=== PATIENT | female | born 1965 | race Caucasian/White ===

== ENCOUNTER 2024-10-08 23:23 | Emergency (ER) | payer OTHER, SELFPAY ==
--- OUTSIDE RECORDS SUMMARY | 2024-10-08 23:26 | XMS_ITS | Clinical Summary ---
Author Organization [facility] Address [address] [place] [address] Care Team Providers Care Pantry Chef Name Role Phone Lisseth Prasad MD Primary Care Provide r Allergies No known active allergies Medications INTRAUTERINE DEVICE (PARAGARD INTRAUTERINE COPPER)Indications :Routine gynecological examination 1 Device one time. 1 Device 0 2 Active ibuprofen (ADVIL; MOTRIN) 200 mg tablet Take 1 tablet by mouth 4 times daily if needed. 0 3 Active citalopram (CELEXA) 10 mg tabletIndications: Anxiety Take 1 tablet by mouth every morning. 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 Family History Medical History Relation Name Comments Diabetes Father Diabetes Sister Cancer-breast No Family History Relation Name Status Comments Father Sister Social History Tobacco Use Types Packs/Day Years Used Date Smoking Tobacco: Never Smokeless Tobacco: Never Tobacco Cessation:Counseling Given: Yes Alcohol Use Standard Drinks/Week Comments No 0 (1 standard drink = 0.6 oz pur e alcohol) PHQ-2 Answer Date Recorded PHQ-2 TOTAL SCORE 0 05/06/2020 Social Connections Answer Date Recorded Frequency of Communication with Friends and Fami ly Not on file 07/14/2021 Financial Resource Strain Answer Date R ecorded Difficulty of Paying Living Expenses Not on file 07/14/2021 Difficulty of Paying Living Expenses Not on file 07/14/2021 Comments No Sex and Gender Information Value Date Recorded Sex Assigned at Not on file Legal Sex Female 7:17 AM ELECTRICAL CAD DESIGNER Gender Identity Not on file Sexual Orientation Not on file Obstetrics History Last Filed Vital Signs Vital Sign Reading Time Taken Comments Blood Pressure 114/71 05/06/2020 10:40 AM CDT Pulse 73 05/06/2020 10:40 AM CDT Temperature 36.9 C (98.5 F) 05/06/2020 10:40 AM CDT Respiratory Rate - - Oxygen Saturation 98% 05/06/2020 10:40 AM CDT Inhaled Oxygen Concentration - - Weight 74.1 kg (163 lb 4.8 oz) 05/06/2020 10:40 AM CDT Height 152.4 cm (5') 05/06/2020 10:40 AM CDT Body Mass Index 31.89 05/06/2020 10:40 AM CDT Plan of Treatment Health Maintenance Due Date Last Done Comments Tdap 1977 HIV for age 15-65 1981 Hepatitis C screening for ag e 18-79 1984 Tetanus booster 1986 Colonoscopy through age 75 2011 Pneumococcal series for age 50+ (1 of 1 - PCV) 2016 Zoster (shingles) series for age 50+ (1 of 2) 2016 Mammogram for age 45-75 07/23/2020 07/23/19 20, 06/11/2018, 05/29/2014, Additional history exists BMI (ht and wt on same day) for age 18+ 05/06/2021 05/06/2020, 09/05/2019, 07/24/2019, Additional history exists Depression screening for age 12+ 05/07/2021 05/07/2020, 05/06/2020, 09/05/2019 Pap test for age 21-65 06/11/2021 8, 05/29/2014, 11/23/2011, Additional history exists COVID-19 vaccine series (2023- season) 2024 Influenza Vaccine (#1) 2024 Lipids for age 45-75 07/24/2024 07/24/2019, 11/02/19 12 Procedures Procedure Name Priority Date/Time Associated Diagnosis Comments LIPID PANEL W REFLEX MEASURED LDL Routine 07/24/2019 5:39 PM ELECTRICAL CAD DESIGNER Lipid screening XR MAMMO ABIGAIL BILAT SCREEN Routine 07/23/2019 3:55 PM ELECTRICAL CAD DESIGNER Visit for screening mammogram MOBILE SECURITY SPECIALIST THIN PREP PAP SCREEN IMAGED Routine 06/11/2018 2:40 PM ELECTRICAL CAD DESIGNER Screening for malignant neoplasm of cervix from Last 3 Months or Most Recently Relevant to Health Maintenance Results * (ABNORMAL) LIPID PANEL W REFLEX MEASURED LDL (07/24/2019 5:39 PM ELECTRICAL CAD DESIGNER) CHOLESTEROL,TOTAL 227(H) 100 - 199 mg/dL 07/25/2019 2:41 PM ELECTRICAL CAD DESIGNER [facility] TRIGLYCERIDES 395(H) <150 mg/dL 07/25/2019 2:41 PM ELECTRICAL CAD DESIGNER [facility] HDL CHOLESTEROL 38(L) >40 mg/dL 0 2:41 PM ELECTRICAL CAD DESIGNER [facility] NON-HDL CHOLESTEROL 189(H) <145 mg/dl 07/25/2019 2:41 PM ELECTRICAL CAD DESIGNER [facility] CHOL/HDL RATIO 5.97(H) <4.50 07/25/2019 2:41 PM ELECTRICAL CAD DESIGNER [facility] LDL CHOLESTEROL 110 <=130 mg/dL 07/25/2019 2:41 PM ELECTRICAL CAD DESIGNER [facility] PROVIDER ORDERED STATUS RANDOM 07/25/2019 2:41 PM ELECTRICAL CAD DESIGNER [facility] Blood BLOOD SPECIMEN / Unknown Venipuncture / Unknown 07/24/2019 5:39 PM ELECTRICAL CAD DESIGNER 07/24/2019 5:39 PM ELECTRICAL CAD DESIGNER us Lisseth Prasad MD CHEMISTRY Final Result [facility] [address] [place] [address], [place] * XR MAMMO ABIGAIL BILAT SCREEN (07/23/2019 3:55 PM ELECTRICAL CAD DESIGNER) Anatomical Region Laterality Modality BREASTS, Breast Left, Breast Right Bilateral Mammography Impressions 07/24/2019 3:42 PM ELECTRICAL CAD DESIGNER There is no radiographic evidence for malignancy. Recommend annual mammograms. A lay language report of this examination will be provided to the patient. MAMMOGRAM ASSESSMENT: ACR 2 Benign Narrative 07/24/2019 3:42 PM ELECTRICAL CAD DESIGNER XR MAMMO ABIGAIL BILAT SCREEN [[id number]] CLINICAL HISTORY: This is an asymptomatic 53 y.o. patient. INDICATION FOR EXAM: Mammogram Screening. TECHNIQUE: CC & MLO views were obtained. This digital study was evaluated with the assistance of Computer-Aided Detection. Breast Tomosynthesis was used in interpretation. COMPARISON FILMS: Yes 06/11/18 [facility] 05/29/14 [facility] FINDINGS: Mammographically, the breast tissue has scattered fibroglandular densities. No suspicious masses or microcalcifications. Benign appearing calcifications within right breast. us Lisseth Prasad MD MAMMO Final Result * MOBILE SECURITY SPECIALIST THIN PREP PAP SCREEN IMAGED (06/11/2018 2:40 PM ELECTRICAL CAD DESIGNER) Case Report Gynecologic Cytology Report Case: [id number] Authorizing Provider: Lisseth Prasad, Collected: 06/11/2018 1440 MD Ordering Location: [facility] Received: 06/11/2018 1612 Clinic First Screen: Jackie Montoya Pathologist: Latasha Ramsey MD Specimen: MOBILE SECURITY SPECIALIST ThinPrep Vial Screening, Cervical 06/25/2018 9:58 AM ELECTRICAL CAD DESIGNER [facility] INTERPRETATION/ RESULT NEGATIVE FOR INTRAEPITHELIAL LESION OR MALIGNANCY (NIL) (none) 06/25/2018 9:58 AM ELECTRICAL CAD DESIGNER [facility] R NON-NEOPLASTIC FINDING(S) Reactive cellular changes associated with inflammation/repa ir 06/25/2018 9:58 AM ELECTRICAL CAD DESIGNER [facility] ORGANISM(S) Fungal organisms morphologically consistent with Tsering species 06/25/2018 9:58 AM ELECTRICAL CAD DESIGNER [facility] SPECIMEN ADEQUACY Satisfactory for evaluation Endocervical component present 06/25/2018 9:58 AM ELECTRICAL CAD DESIGNER [facility] HPV REQUEST HPV if ASCUS 06/25/2018 9:58 AM ELECTRICAL CAD DESIGNER [facility] Date of LMP 03/11/2018 06/25/2018 9:58 AM ELECTRICAL CAD DESIGNER [facility] Last Pap Date 05/29/14 06/25/2018 9:58 AM ELECTRICAL CAD DESIGNER [facility] Last Pap Result NIL 8 9:58 AM ELECTRICAL CAD DESIGNER [facility] Abnormal Pap or [place] Bx in last 5 years No 06/25/2018 9:58 AM ELECTRICAL CAD DESIGNER [facility] Menstrual Status Irregular Periods 06/25/2018 9:58 AM ELECTRICAL CAD DESIGNER [facility] [place] Bx Done Today No 06/25/2018 9:58 AM ELECTRICAL CAD DESIGNER [facility] Additional Information None given 06/25/2018 9:58 AM ELECTRICAL CAD DESIGNER [facility] Automated Review Successful 06/25/2018 9:58 AM ELECTRICAL CAD DESIGNER [facility] Comment:Specimen processed s uccessfully by automated engineer and geologist device, ThinPrep Imaging System, [employer] Note Case seen in consultation with Dr. Faulkner. The pap test is a screening technique, not a diagnostic procedure. It is used primarily to screen for squamous cancers and precursor lesions. Published studies have shown that it is subject to both false negative and false positive results. The pap test should not be used as the sole means to diagnose or exclude pre-malignant and malignant lesions. Cytology is screened and interpreted at [facility] - [address], [place] [address] and [facility] - [address]; [place] [address] and [facility] - [address]; [place] [address] and [facility] [address]; [place] [address] 06/25/2018 9:58 AM ELECTRICAL CAD DESIGNER [facility] Other (Cervical) Non-Blood / Unknown 06/11/2018 2:40 PM ELECTRICAL CAD DESIGNER 06/11/2018 4:12 PM ELECTRICAL CAD DESIGNER us Lisseth Prasad MD PATHOLOGY/CYTOLOGY nal Result [facility] [address] [place] [address], from Last 3 Months or Most Recently Relevant to Health Maintenance Insurance [id number] [place] [address] [employer] Care Teams Pantry Chef Relationship Specialty Start Date End Date Lisseth Prasad MD [address] [place] [address] PCP - General 05/01/06
[2024-10-08 23:29] VITALS: BP 162/90; PULSE 100; RESP 16; TEMP 36.3; O2SAT 97; BMI 34.3
--- NOTE | 2024-10-09 00:16 | CRLHL7_ITS ---
For Patients: As a result of the Cures Act, medical imaging exams and procedure reports are released immediately into your electronic medical record. You may view this report before your referring provider. If you have questions, please contact your health care provider. INDICATION: Fall. TECHNIQUE: Left hand 3rd digit, 3 view. COMPARISON: None. FINDINGS: Bones: There is an acute nondisplaced oblique intra-articular fracture through the base of the 3rd distal phalanx. No dislocation. Joint spaces: Unremarkable. Soft tissues: Mild soft tissue swelling. IMPRESSION: Acute nondisplaced intra-articular fracture through the base of the 3rd distal phalanx. Dictated by Marcela Jarquin MD @ 10/09/2024 12:43:41 AM (Electronically Signed)
--- NOTE | 2024-10-09 00:17 | CRLHL7_ITS ---
For Patients: As a result of the Century Cures Act, medical imaging exams and procedure reports are released immediately into your electronic medical record. You may view this report before your referring provider. If you have questions, please contact your health care provider. INDICATION: Fall trauma. TECHNIQUE: Cervical spine 3 view. COMPARISON: None. FINDINGS/impression: Bones: Straightening of the physiologic cervical lordosis. No fractures or significant bone lesions. Joints: Disc spaces and facets are within expected limits for age. Soft tissues: Unremarkable. Dictated by Karri Smith MD @ 10/09/2024 12:45:06 AM (Electronically Signed)
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
--- OUTSIDE RECORDS SUMMARY | 2024-10-09 00:32 | XMS_ITS | Clinical Summary ---
Author Organization [facility] Address [address] [place] [address] Care Team Providers Care Dental Equipment Repairer Name Role Phone Lisseth Prasad MD Primary [...] on file Legal Sex Female 7:17 AM PHARMACOLOGIST Gender Identity Not on file Sexual Orientation [...] REFLEX MEASURED LDL Routine 07/24/2019 5:39 PM PHARMACOLOGIST Lipid screening XR MAMMO ABIGAIL BILAT SCREEN Routine 07/23/2019 3:55 PM PHARMACOLOGIST Visit for screening mammogram ASSISTANT PROFESSOR OF ARCHAEOLOGY THIN PREP PAP SCREEN IMAGED Routine 06/11/2018 2:40 PM PHARMACOLOGIST Screening for malignant neoplasm of cervix from Last 3 Months or Most Recently Relevant to Health Maintenance Results * (ABNORMAL) LIPID PANEL W REFLEX MEASURED LDL (07/24/2019 5:39 PM PHARMACOLOGIST) CHOLESTEROL,TOTAL 227(H) 100 - 199 mg/dL 07/25/2019 2:41 PM PHARMACOLOGIST [facility] TRIGLYCERIDES 395(H) <150 mg/dL 07/25/2019 2:41 PM PHARMACOLOGIST [facility] HDL CHOLESTEROL 38(L) >40 mg/dL 0 2:41 PM PHARMACOLOGIST [facility] NON-HDL CHOLESTEROL 189(H) <145 mg/dl 07/25/2019 2:41 PM PHARMACOLOGIST [facility] CHOL/HDL RATIO 5.97(H) <4.50 07/25/2019 2:41 PM PHARMACOLOGIST [facility] LDL CHOLESTEROL 110 <=130 mg/dL 07/25/2019 2:41 PM PHARMACOLOGIST [facility] PROVIDER ORDERED STATUS RANDOM 07/25/2019 2:41 PM PHARMACOLOGIST [facility] Blood BLOOD SPECIMEN / Unknown Venipuncture / Unknown 07/24/2019 5:39 PM PHARMACOLOGIST 07/24/2019 5:39 PM PHARMACOLOGIST us Lisseth Prasad MD CHEMISTRY Final Result [facility] [address] [place] [address], [place] * XR MAMMO ABIGAIL BILAT SCREEN (07/23/2019 3:55 PM PHARMACOLOGIST) Anatomical Region Laterality Modality BREASTS, Breast Left, Breast Right Bilateral Mammography Impressions 07/24/2019 3:42 PM PHARMACOLOGIST There is no radiographic evidence for malignancy. Recommend annual mammograms. A lay language report of this examination will be provided to the patient. MAMMOGRAM ASSESSMENT: ACR 2 Benign Narrative 07/24/2019 3:42 PM PHARMACOLOGIST XR MAMMO ABIGAIL BILAT SCREEN [[id number]] CLINICAL HISTORY: This is an asymptomatic 53 y.o. patient. INDICATION FOR EXAM: Mammogram Screening. TECHNIQUE: CC & MLO views were obtained. This digital study was evaluated with the assistance of Computer-Aided Detection. Breast Tomosynthesis was used in interpretation. COMPARISON FILMS: Yes 06/11/18 [facility] 05/29/14 [facility] FINDINGS: Mammographically, the breast tissue has scattered fibroglandular densities. No suspicious masses or microcalcifications. Benign appearing calcifications within right breast. us Lisseth Prasad MD MAMMO Final Result * ASSISTANT PROFESSOR OF ARCHAEOLOGY THIN PREP PAP SCREEN IMAGED (06/11/2018 2:40 PM PHARMACOLOGIST) Case Report Gynecologic Cytology Report Case: [id number] Authorizing Provider: Lisseth Prasad, Collected: 06/11/2018 1440 MD Ordering Location: [facility] Received: 06/11/2018 1612 Clinic First Screen: Jackie Montoya Pathologist: Latasha Ramsey MD Specimen: ASSISTANT PROFESSOR OF ARCHAEOLOGY ThinPrep Vial Screening, Cervical 06/25/2018 9:58 AM PHARMACOLOGIST [facility] INTERPRETATION/ RESULT NEGATIVE FOR INTRAEPITHELIAL LESION OR MALIGNANCY (NIL) (none) 06/25/2018 9:58 AM PHARMACOLOGIST [facility] R NON-NEOPLASTIC FINDING(S) Reactive cellular changes associated with inflammation/repa ir 06/25/2018 9:58 AM PHARMACOLOGIST [facility] ORGANISM(S) Fungal organisms morphologically consistent with Tsering species 06/25/2018 9:58 AM PHARMACOLOGIST [facility] SPECIMEN ADEQUACY Satisfactory for evaluation Endocervical component present 06/25/2018 9:58 AM PHARMACOLOGIST [facility] HPV REQUEST HPV if ASCUS 06/25/2018 9:58 AM PHARMACOLOGIST [facility] EN[facility]AL LAB[facility] Date of LMP 03/11/2018 06/25/2018 9:58 AM PHARMACOLOGIST [facility] Last Pap Date 05/29/14 06/25/2018 9:58 AM PHARMACOLOGIST [facility] Last Pap Result NIL 8 9:58 AM PHARMACOLOGIST [facility] Abnormal Pap or [place] Bx in last 5 years No 06/25/2018 9:58 AM PHARMACOLOGIST [facility] Menstrual Status Irregular Periods 06/25/2018 9:58 AM PHARMACOLOGIST [facility] [place] Bx Done Today No 06/25/2018 9:58 AM PHARMACOLOGIST [facility] Additional Information None given 06/25/2018 9:58 AM PHARMACOLOGIST [facility] Automated Review Successful 06/25/2018 9:58 AM PHARMACOLOGIST [facility] Comment:Specimen processed s uccessfully by automated avionics installer device, ThinPrep Imaging System, [employer] Note Case seen in consultation with [...] lesions. Cytology is screened and interpreted at [facility] - [address], [place] [address] and [facility] - [address]; [place] [address] and [facility] - [address]; [place] [address] and [facility] [address]; [place] [address] 06/25/2018 9:58 AM PHARMACOLOGIST [facility] Other (Cervical) Non-Blood / Unknown 06/11/2018 2:40 PM PHARMACOLOGIST 06/11/2018 4:12 PM PHARMACOLOGIST us Lisseth Prasad MD PATHOLOGY/CYTOLOGY nal Result [facility] [address] [place] [address], from Last 3 Months or Most Recently Relevant to Health Maintenance Insurance [id number] [place] [address] [employer] Care Teams Dental Equipment Repairer Relationship Specialty Start Date End Date Lisseth Prasad MD [address] [place] [address] PCP - General 05/01/06
== END 2024-10-09 01:08 | disposition home or self-care (01) ==
LOC: ED 10-09 00:30
PROVIDERS: Emergency Provider Family Medicine; PCP Family Medicine
DX: S62.663A Nondisplaced fracture of distal phalanx of left middle finger, initial encounter for closed fracture (principal); W51.XXXA Accidental striking against or bumped into by another person, initial encounter; M54.2 Cervicalgia
CPT/HCPCS: 29130; 72040; 73140; 99281; 99283